=== PATIENT | male | born 1990 | race Caucasian/White ===

== ENCOUNTER → 2017-08-17 | Day surgery (SDC) | payer BC ==
[2017-07-23 12:34] VITALS: BMI 26.0
[2017-08-14 12:26] LABS: HEMATOCRIT 45.5 % (42-52); HEMOGLOBIN 15.5 g/dL (14.0-18.0); MEAN CELL VOLUME 94.2 fL (80-100); MEAN CORPUSCULAR HEMOGLOBIN 32.1 pg (25-34); MEAN CORPUSCULAR HGB CONC 34.1 g/dl (32-36); MEAN PLATELET VOLUME 9.7 fL (7.4-10.4); PLATELET COUNT 253 K/uL (130-400); RED CELL DISTRIBUTION WIDTH CV 12.4 % (11.5-14.5); RED CELL DISTRIBUTION WIDTH SD 42.9 fL (36.4-46.3); WHITE BLOOD COUNT 5.63 K/uL (4.8-10.8)
[~2017-08-17] VITALS: Ht 167.6 cm; Wt 79.5 kg
[~2017-08-17] MED LIST: ATROPINE SULFATE 0.1 MG/ML 5ML SYR IV PRN; BUPIVACAINE 0.5 % 5 MG/1 ML MPF 30ML VIAL ONE; CEFAZOLIN 1000MG IV PUSH 7.5 ML IV SCH; CEFAZOLIN SOD 1 GM VIAL ONE; CRTC; DEXAMETHASONE SOD INJ 4 MG/ML VIAL ONE; EpHEDrine SULFATE INJ 50 MG/ML AMP IV PRN; FENTANYL CITRATE INJ 50 MCG/1 ML 2 ML VIAL IV PRN; FENTANYL CITRATE INJ 50 MCG/1 ML 2 ML VIAL ONE; HYDR-5688 PO; LACTATED RINGER'S 1000ML 1,000 ML IV SCH; LIDOCAINE HCL 2% 2 ML VIAL (20MG/ML) ONE; METOCLOPRAMIDE HCL INJ 5 MG/ML 2 ML VIAL IV PRN; MIDAZOLAM HCL 1 MG/ML 2ML VIAL ONE; ONDANSETRON INJ 2 MG/ML 2 ML VIAL IV PRN; ONDANSETRON INJ 2 MG/ML 2 ML VIAL ONE; OXYCODONE/ACETAMINOPHEN 5-325 TAB PO PRN; PROPOFOL IV EMULSION 10 MG/ML 20 ML VIAL IV ONE; ROPIVACAINE 0.5% 5 MG/ML 30 ML VIAL ONE; SODIUM CHLORIDE 0.9% 1000ML 1,000 ML IV SCH
--- NOTE | 2017-08-17 08:15 | Discharge Instructions-SurgCtr ---
Discharge Instructions Date of Service Aug 17, 2017. Visit Reason for Visit: Right Foot Kenyon's, Calcaneal Spur Discharge Discharge Diagnosis / Problem: Right foot Kenyon's resection with detatchment and reattachment Achilles t Discharge Goals Goal(s): Decrease discomfort, Improve function Activity Recommendations Activity Limitations: as noted below Shower/Bathe: keep incision dry Weightbearing Status: Right non-weightbearing Rest, ice, elevation. Non-weight bearing to right leg. Use crutches for ambulation. Anesthesia . Post Anesthesia Instructions: If you have had General Anesthesia or IV Sedation: * Do not drive today. * Resume driving when surgeon permits. * Do not make important decisions or sign legal documents today. * Call surgeon for: 1. Temperature elevations greater than 101 degrees F. 2. Uncontrollable pain. 3. Excessive bleeding. 4. Persistent nausea and vomiting. 5. Medication intolerance (nausea, vomiting or rash). * For nausea and vomiting use only clear liquids such as: tea, soda, bouillon until nausea subsides, then gradually increase diet as tolerated. * If you have any concerns or questions, call your surgeon's office. If physician is unavailable and it is an emergency, call 911 or go to the nearest emergency room. . Diet Recommendations Home Diet: resume previous diet Procedures Procedures Performed: Right foot Kenyon's resection with detatchment and reattachment of Achilles tendon. Pending Studies Studies pending at discharge: yes List of pending studies: X-rays foot 2 views Medical Emergencies . Who to Call and When: Medical Emergencies: If at any time you feel your situation is an emergency, please call 911 immediately. . Non-Emergent Contact Non-Emergency issues call your: Primary Care Provider, Specialist Call Non-Emergent contact if: you have a fever, your pain is not controlled, your pain is worsening, wound has increased drainage, wound has increased redness, wound has increased pain . . "Provider Documentation" section prepared by Jeb Mccrary. . [place] Drug Monitoring Program Search Results: no issues identified
[2017-08-17 11:13] VITALS: Ht 167.6 cm; Wt 79.5 kg
--- NOTE | 2017-08-17 13:57 | [facility] Post Operative Brief Note ---
Immediate Operative Summary Operative Date Aug 17, 2017. Pre-Operative Diagnosis Kenyon's resection right foot Post-Operative Diagnosis Same as preop Procedure(s) Performed Right Foot Kenyon's resection With Speed Bridge Surgeon Dr. Mccrary Interior Design Teacher Surgeon(s) None Estimated Blood Loss 10 mL Findings Consistent with Post-Op Diagnosis Specimens None Drains None Anesthesia Type General Complication(s) none Disposition Accompanied Pt To Recovery: no
--- NOTE | 2017-08-17 14:29 | DIAGNOSTIC IMAGING REPORT ---
Right HEEL, 2 VIEWS CLINICAL HISTORY: Post-op. Retrocalcaneal exostectomy. COMPARISON STUDY: None. FINDINGS: Single crosstable portable view of the right heel. There are postsurgical changes consistent with excess duct. Soft tissue gas noted at the retrocalcaneal location. No acute fractures. There is overlying splint material. IMPRESSION: Postoperative changes consistent with retrocalcaneal exostectomy. Electronically signed by: Bernard Palafox M.D. 08/17/2017 2:28 PM Dictated Date/Time: 08/17/2017 2:27 PM
--- NOTE | 2017-08-17 14:29 | DIAGNOSTIC IMAGING REPORT ---
SURGICNTR HEEL, 2 VIEWS CLINICAL HISTORY: 27 years-old Male presenting with RIGHT FOOT RETROCALCANEAL EXOSTECTOMY. TECHNIQUE: 2 fluoroscopic spot image(s) obtained as part of an intraoperative procedure. COMPARISON: None. FINDINGS/IMPRESSION: Lateral views of the right calcaneus demonstrate postsurgical changes of an ostectomy at the superior portion near the insertion of the Achilles tendon. Please see surgical report for further details. Dose area product (mGy.cm^2): 4.311. Fluoroscopy time: 4 seconds. Number of fluoroscopic spot images: 2. Electronically signed by: Scooter Delcid M.D. 08/17/2017 2:28 PM Dictated Date/Time: 08/17/2017 2:27 PM
--- NOTE | 2017-08-17 14:48 | Anesthesia Progress Nt - [facility] ---
Anesthesia Post Op Note Date & Time Aug 17, 2017 at 14:48 Vital Signs Pain Intensity: 0 Vital Signs Past 12 Hours Date Time Temp Pulse Resp B/P (MAP) Pulse Ox O2 Delivery O2 Flow Rate FiO2 08/17/17 14:28 36.8 68 16 127/82 (97) 98 Room Air 08/17/17 14:26 36.9 08/17/17 14:25 62 6 08/17/17 14:25 60 6 100 08/17/17 14:21 136/78 (93) 08/17/17 14:20 63 9 08/17/17 14:20 63 9 100 08/17/17 14:18 Room Air 08/17/17 14:16 128/82 (99) 08/17/17 14:15 71 6 100 08/17/17 14:15 72 6 08/17/17 14:11 146/89 (111) 08/17/17 14:10 69 8 100 08/17/17 14:10 69 8 08/17/17 14:06 144/89 (109) 08/17/17 14:05 76 12 100 08/17/17 14:05 76 12 08/17/17 14:03 142/88 (106) 08/17/17 14:01 164/92 (110) 08/17/17 14:00 36.3 79 16 142/88 100 Diffusion Mask 5 08/17/17 12:13 Oxymask 5 08/17/17 10:49 36.8 76 18 130/89 (103) 99 Room Air Notes Mental Status: alert / awake / arousable, participated in evaluation Pt Amnestic to Procedure: Yes Nausea / Vomiting: adequately controlled Pain: adequately controlled Airway Patency, RR, SpO2: stable & adequate BP & HR: stable & adequate Hydration State: stable & adequate Anesthetic Complications: no major complications apparent
[2017-08-17 14:52] VITALS: BP 129/79; PULSE 59; O2SAT 99
--- NOTE | 2017-08-17 17:51 | [facility] Operative Report ---
Operative Report Operative Date Aug 17, 2017. Pre-Operative Diagnosis Kenyon's resection right foot Post-Operative Diagnosis Same as preop Procedure(s) Performed Right Foot Kenyon's resection With Speed Bridge Surgeon Dr. Mccrary Loan Adviser Surgeon(s) None Estimated Blood Loss 10 mL Specimens None Drains None Anesthesia Type General Complication(s) none Disposition no Indications This is a very pleasant 27 year old male with history of pain in the posterior aspect of calcaneus along the Achilles tendon and posterior heel right foot, non -relieved with conservative care. Clinical examination demonstrates thickening of the Achilles tendon at the insertion. 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 They have attempted stretching exercises , heel lifts, shoe gear modifications, and physical therapy without improvement in the pain. The perioperative indications, planned procedure, possible benefits , risks, complications, and anticipated healing time and management were discussed in detail with the patient. He understands and elects to proceed with surgery at this time. All consents have been signed. No guarantees were made. All questions have been answered to the patient's satisfaction. Medical clearance has been obtained by the patients primary care physician. Description of Procedure Patient was transferred from the preoperative holding area to the operative suite and popliteal block was administered. Final verification of the patient, surgery, and limb designation was performed via the time-out procedure. After induction of general anesthesia, the patient was placed on the operative table in a prone position. Tourniquet was applied to the right thigh, but not yet inflated. The right foot, ankle, and leg was then prepped and draped in the normal sterile fashion. After elevation of right leg, tourniquet was inflated to 300 mmHg. Attention was directed to the posterior aspect of the right heel, where a linear incision was made just medial to the midline of the Achilles tendon. Incision was created with a #15 blade. Dissection was carried deep to the level of the subcutaneous tissue. Care was taken to preserve any neurovascular structures. Superficial venous bleeders were meticulously retracted and electrocauterized as necessary. The deep fascia was incised and reflected off the posterior calcaneus. The paratenon overlying the distal Achilles tendon was incised. Chronic Achilles tendinosis was noted with additional retrocalcaneal bursitis. A linear incision was made through the distal Achilles tendon and extended transversely across the distal attachment point of the tendon to allow for reflection of the tendon from the posterior calcaneus and full visualization of the prominent Haglunds deformity. Prominent Haglunds deformity was noted and then resected with sagittal bone saw and removed from the surgical field. The posterior calcaneus was contoured and remodeled with use of a sagittal bone saw and reciprocating rasp. Underlying retrocalcaneal bursa was also removed. The anterior portion of the Achilles tendon was debrided of the chronic tendinosis. The remaining posterior portion of the Achilles tendon appeared to be viable with adequate collagen fibers for transfer without the need for a flexor hallucis longus tendon transfer. C-arm image intensifier was used to evaluate the bony resection. Excellent resection of abnormal bone was noted with normal contour of the remaining posterior calcaneus. The surgical site was then flushed with normal saline to remove any remaining bone in the wound. The Achilles tendon was then repaired through the posterior aspect of the calcaneus with an [employer]threx Speed Bridge tendon repair technique utilizing nonabsorbable suture. Two 4.5-mm Bio-Corkscrew anchors were placed in the superior calcaneus. The appropriate sutures were placed through the Achilles tendon and it was tied down to the posterior calcaneus. Distally, two 3.5-mm Bio -PushLock anchors were then placed into the posterior aspect of the calcaneus inferior to the previous anchors, distal to the Achilles tendon attachment. These were sequentially anchored providing excellent repair to the Achilles tendon. Excellent repair was achieved with physiological tension noted to the Achilles tendon with normal Cisse test noted. Tourniquet was released. Excellent hemostasis was achieved. The wounds were then again flushed with copious amounts of normal saline. Additional Vicryl sutures were used to close deep tissue. The paratenon overlying the Achilles tendon was carefully closed using 4-0 monocryl suture. The skin was then closed with 3-0 nylon suture in a horizontal mattress fashion. At this time, the pneumatic thigh tourniquet was deflated. Wounds were further dressed with adaptic, fluff dressings, Kerlix roll, and a modified Werner compression dressing was applied with the ankle and foot in a slightly plantar-flexed position. Patient tolerated the anesthesia and procedure very well, was transferred to the PACU with all vital signs stable and brisk capillary refill time noted in all toes of the right foot. Patient's intraoperative and postoperative disposition was discussed with the family in the postoperative consultation area. I attest to the content of the Intraoperative Record and any orders documented therein. Any exceptions are noted below.
== END | disposition home or self-care (01) ==
LOC: X.SURG 10:35
PROVIDERS: ATTEND Podiatrist Foot & Ankle Surgery
DX: M77.31 Calcaneal spur, right foot (principal); M25.774 Osteophyte, right foot; E66.3 Overweight; Z68.27 Body mass index [BMI] 27.0-27.9, adult; Z98.890 Other specified postprocedural states